=== PATIENT | female | born 1950 | race Asian ===

== ENCOUNTER 2022-02-14 23:05 | Emergency (ER) | payer MEDICARE, OTHER ==
[~2022-02-14] VITALS: Ht 154.9 cm; Wt 65.9 kg
[2022-02-14 23:07] VITALS: BP 160/87
[2022-02-14] MEDS ORDERED: ATEN-73 PO (23:13)
[2022-02-14] MEDS ORDERED: CANA100T PO (23:13)
[2022-02-14] MEDS ORDERED: LISI-893 PO (23:13)
[2022-02-14] MEDS ORDERED: ATOR20TA86 PO (23:13)
[2022-02-14] MEDS ORDERED: METF-1211 PO (23:13)
[2022-02-14] MEDS ORDERED: ACETAMINOPHEN 500 MG TABLET PO ONE (23:30)
== END 2022-02-15 00:33 | disposition home or self-care (01) ==
LOC: EMS 23:14
DX: S60.011A Contusion of right thumb without damage to nail, initial encounter (principal); E11.9 Type 2 diabetes mellitus without complications; E78.00 Pure hypercholesterolemia, unspecified; I10 Essential (primary) hypertension; Z79.899 Other long term (current) drug therapy; W23.0XXA Caught, crushed, jammed, or pinched between moving objects, initial encounter; Y93.89 Activity, other specified; Y92.89 Other specified places as the place of occurrence of the external cause; Y99.8 Other external cause status
CPT/HCPCS: 11740; 82962; 99284

== ENCOUNTER 2025-05-27 03:03 | Emergency (ER) | payer OTHER ==
[~2025-05-27] VITALS: Ht 152.4 cm; Wt 56.8 kg
[~2025-05-27 03:03] MED LIST: ATEN-73 PO; ATOR20TA PO; CANA100T PO; LISI-893 PO; METF-1211 PO
[2025-05-27 03:09] VITALS: TEMP 97.7
[2025-05-27 05:30] VITALS: BP 142/79; PULSE 68; RESP 16; O2SAT 97
== END 2025-05-27 06:35 | disposition home or self-care (01) ==
LOC: EMS 03:05
DX: T16.2XXA Foreign body in left ear, initial encounter (principal); E11.9 Type 2 diabetes mellitus without complications; E78.00 Pure hypercholesterolemia, unspecified; I10 Essential (primary) hypertension; Z79.899 Other long term (current) drug therapy; W44.F4XA Insect entering into or through a natural orifice, initial encounter
CPT/HCPCS: 99282; 99284; Z7502